=== PATIENT | female | born 1995 | race Caucasian/White ===

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

== ENCOUNTER 2017-02-27 05:57 | Emergency (ER) | payer OTHER ==
[2017-02-27] MEDS ORDERED: ONDANSETRON 4 MG/2 ML VIAL ONE (06:20)
--- NOTE | 2017-02-27 06:41 | PDOC ---
History of Present Illness - General Stated Complaint: ABD PAIN Time Seen by Provider: 02/27/17 06:04 - History of Present Illness Initial Comments: 02/27/17 06:34 21 yo with h/o appendectomy who presents with abdominal pain. She reports increasing, sharp , RLQ, abdominal pain of 21 hrs duration. Pain aggravated with standing, and pressure. Not alleviated with OTC Zantac. Also complains of nausea. Denies SOB, epigastric pain, reflux, diarrhea, constipation, blood in stool, vomiting, fevers/chills, dysuria, urinary complaints, vaginal discharge, dyspareurnia flank pain, lightheadedness. LMP ( 02/06). Denies menstrual irregularities. Past History - Past Medical History Allergies/Adverse Reactions: Allergies Allergy/AdvReac Type Severity Reaction Status Date / Time No Known Allergies Allergy Verified 02/27/17 08:44 Home Medications: Ambulatory Orders NK [No Known Home Medication] 02/27/17 Asthma: Yes - Surgical History Appendectomy: Yes - Immunization History Immunization Up to Date: Yes - Psycho/Social/Smoking Cessation Hx Anxiety: No Suicidal Ideation: No Smoking Status: No Smoking History: Never smoked Number of Cigarettes Smoked Daily: 0 Hx Alcohol Use: No Drug/Substance Use Hx: No Review of Systems - Review of Systems Comments:: 02/27/17 07:01 GENERAL/CONSTITUTIONAL: No fever or chills. No weakness. HEAD, EYES, EARS, NOSE AND THROAT: No change in vision. No ear pain or discharge. No sore throat. CARDIOVASCULAR: No chest pain or shortness of breath RESPIRATORY: No cough, wheezing, or hemoptysis. GASTROINTESTINAL:+ Abdominal pain and nausea. No vomiting, diarrhea or constipation. GENITOURINARY: No dysuria, frequency, or change in urination. MUSCULOSKELETAL: No joint or muscle swelling or pain. No neck or back pain. SKIN: No rash NEUROLOGIC: No headache, vertigo, loss of consciousness, or change in strength/ sensation. ENDOCRINE: No increased thirst. No abnormal weight change HEMATOLOGIC/LYMPHATIC: No anemia, easy bleeding, or history of blood clots. ALLERGIC/IMMUNOLOGIC: No hives or skin allergy. *Physical Exam - Physical Exam Comments: 02/27/17 07:04 GENERAL: Awake, alert, and fully oriented, in no acute distress HEAD: No signs of trauma, normocephalic, atraumatic EYES: PERRLA, EOMI, sclera anicteric, conjunctiva clear ENT: Auricles normal inspection, hearing grossly normal, nares patent, oropharynx clear without exudates. Moist mucosa NECK: Normal ROM, supple, no lymphadenopathy, JVD, or masses LUNGS: No distress, speaks full sentences, clear to auscultation bilaterally HEART: Regular rate and rhythm, normal S1 and S2, no murmurs, rubs or gallops, peripheral pulses normal and equal bilaterally. ABDOMEN: + RLQ TTP. Soft, nontender, normoactive bowel sounds. No guarding, no rebound. No masses. Absent flank pain and suprapubic pain. EXTREMITIES: Normal inspection, Normal range of motion, no edema. No clubbing or cyanosis. NEUROLOGICAL: Cranial nerves II through XII grossly intact. Normal speech, normal gait, no focal sensorimotor deficits SKIN: Warm, Dry, normal turgor, no rashes or lesions noted. ED Treatment Course - LABORATORY CBC & Chemistry Diagram: 02/27/17 06:32 02/27/17 06:32 Medical Decision Making - Medical Decision Making 02/27/17 07:06 21 yo F with h/o appendectomy who presents with RLQ abdominal pain. Pt. reports nausea and abdominal pain. Denies asx. symptoms. Physical exam reveal RLQ TTP. ED Course: CBC, CMP, UA, BHCG Transvaginal U/S Morphine 2 mg Ondansetron NS 1L *DC/Admit/Observation/Transfer Diagnosis at time of Disposition: Ovarian cyst Abdominal pain Qualifiers: Abdominal location: right lower quadrant Qualified Code(s): R10.31 - Right lower quadrant pain - Discharge Dispostion Disposition: HOME Condition at time of disposition: Stable - Patient Instructions Printed Discharge Instructions: DI for Ovarian Cyst Additional Instructions: You were seen today in the ER for right lower abdominal pain. We did blood work which showed a slightly elevated white blood cell count, so we did an ultrasound and a CT scan of the abdomen and pelvis. These studies showed some fluid in the right pelvis which is probably due to a ruptured ovarian cyst on that side. You have an incidentally found kidney stone within the left kidney which probably has nothing to do with the pain you are feeling today. Please take Aleve every 12 hours as needed for pain (you can take 2 pills for the first dose, but after that take only one pill every 12 hours). You can use a hot pack too. Follow up with a hand bobbin cleaner or your regular doctor, or return to the ER for any further emergency concerns. - Post Discharge Activity Work/School Note: Back to Work - Attestations Physician Attestion: 02/28/17 01:14 I, Dr. Jose Guadalupe Ferrell, attest that this document has been prepared under my direction and personally reviewed by me in its entirety. I further attest, that it accurately reflects all work, treatment, procedures and medical decision -making performed by me.
[2017-02-27] MEDS ORDERED: SODIUM CHLORIDE 1,000 ML IV STA (06:59)
[2017-02-27] MEDS ORDERED: morphine CARPU-JECT 2 MG/1 ML DISP.SYRIN IVPUSH ONE (06:59)
[2017-02-27 07:02] LABS: URINE APPEARANCE CLEAR; URINE BILIRUBIN NEGATIVE (NEGATIVE); URINE BLOOD NEGATIVE (NEGATIVE); URINE COLOR YELLOW; URINE GLUCOSE (UA) NEGATIVE (NEGATIVE); URINE KETONE NEGATIVE (NEGATIVE); URINE LEUK ESTERASE NEGATIVE (NEGATIVE); URINE NITRITE NEGATIVE (NEGATIVE); URINE PROTEIN NEGATIVE (NEGATIVE); URINE UROBILINOGEN NEGATIVE mg/dL (0.2-1.0)
--- NOTE | 2017-02-27 07:02 | PDOC ---
Attending Attestation - Resident Resident Name: Jose Guadalupe Ferrell - ED Attending Attestation I have performed the following: I have examined & evaluated the patient, The case was reviewed & discussed with the resident, I agree w/resident's findings & plan, Exceptions are as noted - HPI HPI: 02/27/17 07:01 RLQ pian since 9pm last night. + nausea, vomiting, Denies FUD, - Physicial Exam PE: 02/27/17 07:00 *Physical Exam General Appearance: Yes: Appropriately Dressed. mild distress, No, Intoxicated HEENT: positive: EOMI, SANDEEP, Normal ENT Inspection, Normal Voice, TMs Normal, Pharynx Normal. negative: Pale Conjunctivae, Photophobia, Scleral Icterus (R), Scleral Icterus (L) Neck: positive: Trachea midline, Normal Thyroid, Supple. negative: Tender, Rigid, Carotid bruit, Stridor, Lymphadenopathy (R), Lymphadenopathy (L), Thyromegaly Respiratory/Chest: positive: Lungs Clear, Normal Breath Sounds. negative: Chest Tender, Respiratory Distress, Accessory Muscle Use, Labored Respiration, RES, Crackles, Rales, Rhonchi, Stridor, Wheezing, Dullness Cardiovascular: positive: Regular Rhythm, Regular Rate, S1, S2. negative: Edema , JVD, Murmur, Bradycardia, Tachycardia Vascular Pulses: Dorsalis-Pedis (R): 2+, Doralis-Pedis (L): 2+ Gastrointestinal/Abdominal: positive: Normal Bowel Sounds, Flat, Soft. RLQ tenderness, + guarding. negative: , Organomegaly, Pulsatile Mass, Increased Bowel Sounds, Decreased BS, Distended, Guarding, Rebound, Hernia, Hepatomegaly, Spleenomegaly Lymphatic: negative: Adenopathy, Tenderness Musculoskeletal: positive: Normal Inspection. negative: CVA Tenderness, Decreased Range of Motion Extremity: positive: Normal Capillary Refill, Normal Inspection, Normal Range of Motion, Pelvis Stable. negative: Tender, Pedal Edema, Swelling, Erythema Integumentary: positive: Normal Color, Dry, Warm. negative: Cyanotic, Erythema , Jaundice, Rash Neurologic: positive: mechanical adjuster II-XII NML intact, Fully Oriented, Alert, Normal Mood/ Affect, Motor Strength 5/5. negative: EOM Palsy, Facial Droop, Sensory Deficit
[2017-02-27 07:04] VITALS: TEMP 98; BMI 22.3
[2017-02-27] MEDS ORDERED: morphine CARPU-JECT 4 MG/1 ML DISP.SYRIN ONE ×2 (07:10→08:38)
[2017-02-27 07:37] LABS: BASOPHIL 0.5 % (0-2.0); MCH 31.2 pg (25.7-33.7); MCHC 33.5 g/dl (32.0-36.0); MEAN PLT VOLUME 9.1 fl (7.5-11.1); NEUTROPHILS 76.5 % (42.8-82.8); PLATELET COUNT 250 K/MM3 (134-434); RDW 13.3 % (11.6-15.6); WHITE BLOOD COUNT 13.4 K/mm3 (4.0-10.0)
[2017-02-27 08:11] LABS: ALBUMIN 4.1 g/dl (3.4-5.0); ALK PHOS 68 U/L (45-117); ANION GAP 8 (8-16); BILIRUBIN,TOTAL 0.2 mg/dL (0.2-1.0); CALCIUM 9.1 mg/dL (8.5-10.1); CO2 26 mmol/L (21-32); CREATININE 0.7 mg/dL (0.55-1.02); GLUCOSE,RANDOM 104 mg/dL (74-106); SGOT/AST 15 U/L (15-37); SGPT/ALT 17 U/L (12-78); TOT PROT 7.3 g/dl (6.4-8.2)
[2017-02-27] MEDS ORDERED: morphine CARPU-JECT 4 MG/1 ML DISP.SYRIN IVPUSH ONE (08:35)
--- NOTE | 2017-02-27 08:59 | PDOC ---
*Physical Exam - Vital Signs Last Vital Signs Temp Pulse Resp BP Pulse Ox 98 F 89 15 125/67 100 02/27/17 07:01 02/27/17 07:01 02/27/17 07:01 02/27/17 07:01 02/27/17 07:01 - Physical Exam General Appearance: Yes: Nourished, Mild Distress, Other (pleasant younger female who provides helpful medical history and is answering appropriately but appears uncomfortable, family at bedside) HEENT: positive: EOMI, Normal Voice, Hearing Grossly Normal. negative: Scleral Icterus (R), Scleral Icterus (L), Nasal Congestion Neck: positive: Trachea midline, Supple. negative: Tender, Rigid Respiratory/Chest: positive: Lungs Clear, Normal Breath Sounds. negative: Respiratory Distress, Crackles, Rhonchi, Stridor, Wheezing Cardiovascular: positive: Regular Rhythm, Regular Rate. negative: Murmur Gastrointestinal/Abdominal: positive: Normal Bowel Sounds, Tender (moderate RLQ tenderness to palpation), Soft. negative: Organomegaly, Pulsatile Mass Musculoskeletal: positive: Normal Inspection. negative: Decreased Range of Motion, Vertebral Tenderness Extremity: positive: Normal Capillary Refill, Normal Inspection, Normal Range of Motion. negative: Tender, Cyanosis Integumentary: positive: Normal Color, Dry, Warm. negative: Erythema, Rash, Bruising Neurologic: positive: elementary assistant principal II-XII NML intact, Fully Oriented, Alert, Normal Mood/ Affect, Normal Response, Motor Strength 5/5 ED Treatment Course - LABORATORY CBC & Chemistry Diagram: 02/27/17 06:32 02/27/17 06:32 - ADDITIONAL ORDERS Additional order review: Laboratory Results 02/27/17 02/27/17 02/27/17 06:32 06:32 06:32 Sodium 141 Potassium 4.2 D Chloride 107 Carbon Dioxide 26 Anion Gap 8 BUN 17 D Creatinine 0.7 Creat Clearance w eGFR > 60 Random Glucose 104 D Calcium 9.1 Total Bilirubin 0.2 D AST 15 ALT 17 Alkaline Phosphatase 68 Total Protein 7.3 Albumin 4.1 D Lipase 159 Urine Color Yellow Urine Appearance Clear Urine pH 5.0 Urine Protein Negative Urine Glucose (UA) Negative Urine Ketones Negative Urine Blood Negative Urine Nitrite Negative Urine Bilirubin Negative Urine Urobilinogen Negative Ur Leukocyte Esterase Negative Urine HCG, Qual Negative 02/27/17 06:32 RBC 4.00 MCV 93.0 MCHC 33.5 RDW 13.3 MPV 9.1 Neutrophils % 76.5 Lymphocytes % 14.9 D Monocytes % 6.1 Eosinophils % 2.0 D Basophils % 0.5 - RADIOLOGY Radiology Studies Ordered: CT abdomen without contrast suggests small amount of free fluid in the pelvis consistent with ruptured ovarian cyst, and one intrarenal calculus on the left without e/o obstruction, no appendix visualized. - Medications Given in the ED: ED Medications Discontinued Medications Generic Name Dose Route Start Last Admin Trade Name [place] PRN Reason Stop Dose Admin Sodium Chloride 1,000 mls @ 1,000 mls/hr 02/27/17 06:59 02/27/17 07:08 Normal Saline - IV 02/27/17 07:58 1,000 mls/hr ASDIR STA Administration Morphine Sulfate 2 mg 02/27/17 06:59 02/27/17 07:08 Morphine Injection - IVPUSH 02/27/17 07:00 2 mg ONCE ONE Administration Medical Decision Making - Medical Decision Making Assumed care from excellent Dr. Jose Guadalupe Ferrell at 0700. 21 yo female with h/o appendectomy 3 years ago who p/w RLQ pain. 02/27/17 08:37 Pt has WBC 13.7 noted on CBC result. Examined and found with continued moderate RLQ ttp despite recent morphine. 02/27/17 10:[address] renal stone protocol ordered. Pt's pain is well controlled with the Toradol. Abdominal CT suggestive of ruptured ovarian cyst, no intraabdominal e/o infection or ureteral stone. The patient is comfortable with DC home and plan to take OTC NSAIDs and f/u with PCP. *DC/Admit/Observation/Transfer Diagnosis at time of Disposition: Ovarian cyst Abdominal pain Qualifiers: Abdominal location: right lower quadrant Qualified Code(s): R10.31 - Right lower quadrant pain - Discharge Dispostion Disposition: HOME Condition at time of disposition: Stable Admit: No - Patient Instructions Printed Discharge Instructions: DI for Ovarian Cyst Additional Instructions: You were seen today in the ER for right lower abdominal pain. We did blood work which showed a slightly elevated white blood cell count, so we did an ultrasound and a CT scan of the abdomen and pelvis. These studies showed some fluid in the right pelvis which is probably due to a ruptured ovarian cyst on that side. You have an incidentally found kidney stone within the left kidney which probably has nothing to do with the pain you are feeling today. Please take Aleve every 12 hours as needed for pain (you can take 2 pills for the first dose, but after that take only one pill every 12 hours). You can use a hot pack too. Follow up with a fiscal assistant or your regular doctor, or return to the ER for any further emergency concerns. - Post Discharge Activity Work/School Note: Back to Work - Attestations Physician Attestion: 02/27/17 12:54 I, Dr. Jazmin Guerrero, attest that this document has been prepared under my direction and personally reviewed by me in its entirety. I further attest, that it accurately reflects all work, treatment, procedures and medical decision -making performed by me.
[2017-02-27] MEDS ORDERED: ACETAMINOPHEN 325 MG TABLET (FP) ONE (09:30)
[2017-02-27] MEDS ORDERED: KETOROLAC TROMETHAMINE 30 MG/1 ML VIAL IVPUSH ONE (10:01)
[2017-02-27] MEDS ORDERED: KETOROLAC TROMETHAMINE 30 MG/1 ML VIAL ONE (10:09)
--- NOTE | 2017-02-27 10:11 | PDOC ---
*Physical Exam - Vital Signs Last Vital Signs Temp Pulse Resp BP Pulse Ox 98 F 89 15 125/67 100 02/27/17 07:01 02/27/17 07:01 02/27/17 07:01 02/27/17 07:01 02/27/17 07:01 - Physical Exam General Appearance: Yes: Nourished Neck: positive: Trachea midline Respiratory/Chest: positive: Chest Tender, Lungs Clear, Normal Breath Sounds Cardiovascular: positive: Regular Rhythm, Regular Rate Gastrointestinal/Abdominal: positive: Tender. negative: Flat, Soft ED Treatment Course - LABORATORY CBC & Chemistry Diagram: 02/27/17 06:32 02/27/17 06:32 - ADDITIONAL ORDERS Additional order review: Laboratory Results 02/27/17 02/27/17 02/27/17 06:32 06:32 06:32 Sodium 141 Potassium 4.2 D Chloride 107 Carbon Dioxide 26 Anion Gap 8 BUN 17 D Creatinine 0.7 Creat Clearance w eGFR > 60 Random Glucose 104 D Calcium 9.1 Total Bilirubin 0.2 D AST 15 ALT 17 Alkaline Phosphatase 68 Total Protein 7.3 Albumin 4.1 D Lipase 159 Urine Color Yellow Urine Appearance Clear Urine pH 5.0 Urine Protein Negative Urine Glucose (UA) Negative Urine Ketones Negative Urine Blood Negative Urine Nitrite Negative Urine Bilirubin Negative Urine Urobilinogen Negative Ur Leukocyte Esterase Negative Urine HCG, Qual Negative 02/27/17 06:32 RBC 4.00 MCV 93.0 MCHC 33.5 RDW 13.3 MPV 9.1 Neutrophils % 76.5 Lymphocytes % 14.9 D Monocytes % 6.1 Eosinophils % 2.0 D Basophils % 0.5 - Medications Given in the ED: ED Medications Discontinued Medications Generic Name Dose Route Start Last Admin Trade Name Owenq PRN Reason Stop Dose Admin Sodium Chloride 1,000 mls @ 1,000 mls/hr 02/27/17 06:59 02/27/17 07:08 Normal Saline - IV 02/27/17 07:58 1,000 mls/hr ASDIR STA Administration Morphine Sulfate 2 mg 02/27/17 06:59 02/27/17 07:08 Morphine Injection - IVPUSH 02/27/17 07:00 2 mg ONCE ONE Administration Morphine Sulfate 4 mg 02/27/17 08:35 02/27/17 08:42 Morphine Injection - IVPUSH 02/27/17 08:36 4 mg ONCE ONE Administration Medical Decision Making - Medical Decision Making 02/27/17 10:02 21 yo F with h/o appendectomy 3 yrs ago here with rlq pain, started yesterday no n/v pain worse with moving. and walking no urinary complaints, pain radiating to right flank. no n/v. assumed care of pt at [address] coelho , pt awaiting us rlq r/o ovarian cyst/ torsion. on exam pt rlq ttp, mild guarding. no rebound. no cva tenderness. awake alert plan ct if us nondiagnositc 02/27/17 10:11 us with trace free fluid, possible hemorraghic vs. ruptured. cyst. toradol for pain control ct renal stone eval possible stone. *DC/Admit/Observation/Transfer Diagnosis at time of Disposition: Ovarian cyst Abdominal pain Qualifiers: Abdominal location: right lower quadrant Qualified Code(s): R10.31 - Right lower quadrant pain - Discharge Dispostion Disposition: HOME Condition at time of disposition: Stable - Patient Instructions Printed Discharge Instructions: DI for Ovarian Cyst Additional Instructions: You were seen today in the ER for right lower abdominal pain. We did blood work which showed a slightly elevated white blood cell count, so we did an ultrasound and a CT scan of the abdomen and pelvis. These studies showed some fluid in the right pelvis which is probably due to a ruptured ovarian cyst on that side. You have an incidentally found kidney stone within the left kidney which probably has nothing to do with the pain you are feeling today. Please take Aleve every 12 hours as needed for pain (you can take 2 pills for the first dose, but after that take only one pill every 12 hours). You can use a hot pack too. Follow up with a quality control lead or your regular doctor, or return to the ER for any further emergency concerns. - Post Discharge Activity Work/School Note: Back to Work
[2017-02-27 13:01] VITALS: BP 116/68; PULSE 81
== END 2017-02-27 13:01 | disposition home or self-care (01) ==
LOC: JER 05:57
PROC: 3E033NZ Introduction of Analgesics, Hypnotics, Sedatives into Peripheral Vein, Percutaneous Approach (ICD-10-PCS; principal; 2017-02-27)
DX: N83.201 Unspecified ovarian cyst, right side (principal)
CPT/HCPCS: 36415; 74176; 76830-TC; 76856-TC; 80053; 81003; 83690; 84703; 85025; 87491; 87591; 99282-25

== ENCOUNTER 2018-01-21 18:24 | Emergency (ER) | payer OTHER ==
--- NOTE | 2018-01-21 18:33 | PDOC ---
Rapid Medical Evaluation Time Seen by Provider: 01/21/18 18:30 Medical Evaluation: Allergies Allergy/AdvReac Type Severity Reaction Status Date / Time No Known Allergies Allergy Verified 01/21/18 18:29 I have performed a brief in-person evaluation of this patient. The patient presents with a chief complaint of: mentrual cramps and dizziness today. 1 episode of vomiting Pertinent physical exam findings: none I have ordered the following: hcg, UA/culture The patient will proceed to the ED for further evaluation. Discharge Disposition - Diagnosis Menstrual cramps, Dizziness, Vomiting - Referrals - Patient Instructions - Post Discharge Activity
[2018-01-21 18:37] VITALS: BP 105/62; PULSE 67; TEMP 98.5; BMI 20.3
== END 2018-01-21 19:07 | disposition left against medical advice (07) ==
LOC: JER 18:24
DX: N94.6 Dysmenorrhea, unspecified (principal)
CPT/HCPCS: 99281-25

== ENCOUNTER 2019-03-02 10:36 | Emergency (ER) | payer OTHER ==
[2019-03-02 10:51] VITALS: BP 114/58; PULSE 89; TEMP 97.8; BMI 20.3
--- NOTE | 2019-03-02 11:56 | PDOC ---
History of Present Illness - General Chief Complaint: ,Possible Stated Complaint: PREG TEST Time Seen by Provider: 03/02/19 11:21 History Source: Patient Exam Limitations: No Limitations Past History - Past Medical History Allergies/Adverse Reactions: Allergies Allergy/AdvReac Type Severity Reaction Status Date / Time No Known Allergies Allergy Verified 01/21/18 18:29 Home Medications: Ambulatory Orders NK [No Known Home Medication] 02/27/17 Asthma: Yes COPD: No - Surgical History Appendectomy: Yes - Immunization History Immunization Up to Date: Yes - Suicide/Smoking/Psychosocial Hx Smoking Status: No Smoking History: Current every day smoker Have you smoked in the past 12 months: Yes Number of Cigarettes Smoked Daily: 10 Information on smoking cessation initiated: No Hx Alcohol Use: No Drug/Substance Use Hx: No *Physical Exam - Vital Signs Last Vital Signs Temp Pulse Resp BP Pulse Ox 97.8 F 89 18 114/58 L 100 03/02/19 10:48 03/02/19 10:48 03/02/19 10:48 03/02/19 10:48 03/02/19 10:48 - Physical Exam General Appearance: No: Apparent Distress Respiratory/Chest: positive: Lungs Clear, Normal Breath Sounds. negative: Respiratory Distress Cardiovascular: positive: Regular Rhythm, Regular Rate, S1, S2. negative: Murmur Gastrointestinal/Abdominal: positive: Normal Bowel Sounds, Soft. negative: Tender, Distended, Guarding, Rebound Neurologic: positive: Alert, Normal Mood/Affect ED Treatment Course - ADDITIONAL ORDERS Additional order review: Laboratory Results 03/02/19 11:15 Urine HCG, Qual Negative Medical Decision Making - Medical Decision Making 23 y/o F presents for test. States her LNMP was either January 13 or and she has regular menstrual cycles, but it has not yet come this month. Did a home test which was negative. Denies fever, sob, cp, abd pain, n/v, urinary complaints UCG negative 03/02/19 11:54 *DC/Admit/Observation/Transfer Diagnosis at time of Disposition: test negative - Discharge Dispostion Disposition: HOME Condition at time of disposition: Stable Decision to Admit order: No - Referrals - Patient Instructions Additional Instructions: Thank you for choosing . It was a pleasure taking care of you. Your test was negative here. Return to the Emergency Department for any other concerning symptoms. - Post Discharge Activity
== END 2019-03-02 11:55 | disposition home or self-care (01) ==
LOC: JERFT 10:36
DX: Z32.02 Encounter for pregnancy test, result negative (principal); F17.210 Nicotine dependence, cigarettes, uncomplicated; J45.909 Unspecified asthma, uncomplicated
CPT/HCPCS: 84703; 99281-25

== ENCOUNTER 2021-09-10 11:00 | Inpatient (IN) | payer OTHER ==
[2021-09-10] MEDS ORDERED: BISMUTH SUBSALICYLATE 524 MG/30 ML PO PRN (11:41)
[2021-09-10] MEDS ORDERED: MAGNESIUM HYDROX 2400MG/30ML ORAL SUSPENSION 30 ML CUP PO PRN (11:41)
[2021-09-10] MEDS ORDERED: ONDANSETRON *ODT* 4 MG TABLET SL PRN (11:41)
[2021-09-10] MEDS ORDERED: MAG HYDROX/AL HYDROX/SIMETH 30 ML UNIT-DOSE CUP PO PRN (11:41)
[2021-09-10] MEDS ORDERED: cloNIDine HCL 0.1 MG TABLET PO PRN (11:41)
[2021-09-10] MEDS ORDERED: ACETAMINOPHEN 325 MG TABLET (FP) PO PRN ×2 (11:41)
[2021-09-10] MEDS ORDERED: MAGNESIUM CITRATE 300 ML BOTTLE PO PRN (11:41)
[2021-09-10] MEDS ORDERED: IBUPROFEN 400 MG TABLET (FP) PO PRN (11:41)
[2021-09-10] MEDS ORDERED: NICOTINE 10 MG CARTRIDGE (INHALER) IH PRN (11:41)
[2021-09-10] MEDS ORDERED: MENTHOL/PHENOL 1 EACH UD MM PRN (11:41)
[2021-09-10 11:58] VITALS: BMI 18.9
[2021-09-10] MEDS ORDERED: methaDONE HCL 10 MG TABLET (FOR DETOX USE ONLY) PO ONE (13:30)
[2021-09-10] MEDS: METHOCARBAMOL 500 MG TABLET PO PRN (13:51)
[2021-09-10] MEDS: PRENATAL VITAMINS W/ FOLIC ACID TABLET (FP) PO SCH (13:51)
[2021-09-10] MEDS: hydrOXYzine PAMOATE 25 MG CAPSULE (FP) PO SCH ×3 (13:51→22:02)
[2021-09-10] MEDS: NICOTINE 14 MG/24 HOURS TOPICAL PATCH TD SCH (13:57)
[2021-09-10 15:15] LABS: HEMATOCRIT 31.6 % (32.4-45.2); HEMOGLOBIN 10.5 GM/dL (10.7-15.3); MCH 27.9 pg (25.7-33.7); MCHC 33.3 g/dl (32.0-36.0); MEAN CELL VOLUME 83.8 fl (80-96); MEAN PLT VOLUME 9.3 fl (7.5-11.1); PLATELET COUNT 258 10^3/uL (134-434); RBC 3.77 M/mm3 (3.60-5.2); RDW 16.6 % (11.6-15.6); WHITE BLOOD COUNT 6.1 K/mm3 (4.0-10.0)
[2021-09-10 15:28] LABS: ALBUMIN 3.6 g/dl (3.4-5.0); BLOOD UREA NITROGEN 15.4 mg/dL (7-18); CALCIUM 9.4 mg/dL (8.5-10.1)
[2021-09-10 15:34] LABS: BILIRUBIN,TOTAL 0.2 mg/dL (0.2-1); TOT PROT 7.4 g/dl (6.4-8.2)
[2021-09-10 15:36] LABS: CREATININE 0.9 mg/dL (0.55-1.3)
[2021-09-10] MEDS ORDERED: MELATONIN 5 MG TABLETS PO SCH (22:00)
[2021-09-10] MEDS ORDERED: THIAMINE HCL 100 MG TABLET (FP) PO SCH (22:00)
[2021-09-11] MEDS: hydrOXYzine PAMOATE 25 MG CAPSULE (FP) PO SCH ×2 (06:09→09:09)
[2021-09-11] MEDS ORDERED: methaDONE HCL 10 MG TABLET (FOR DETOX USE ONLY) ONE (09:05)
[2021-09-11] MEDS: METHOCARBAMOL 500 MG TABLET PO PRN (09:09)
[2021-09-11 09:11] VITALS: BP 119/73; PULSE 72; TEMP 97
[2021-09-11] MEDS: PRENATAL VITAMINS W/ FOLIC ACID TABLET (FP) PO SCH (09:11)
[2021-09-11] MEDS: NICOTINE 14 MG/24 HOURS TOPICAL PATCH TD SCH (09:12)
[2021-09-12] MEDS ORDERED: methaDONE HCL 10 MG TABLET (FOR DETOX USE ONLY) PO ONE ×2 (06:00→10:00)
[2021-09-14] MEDS ORDERED: methaDONE HCL 10 MG TABLET (FOR DETOX USE ONLY) PO ONE ×2 (06:00→10:00)
== END 2021-09-11 11:06 | disposition left against medical advice (07) | DRG 770 ==
LOC: YASAS 11:00 → Y6N 12:48
PROVIDERS: ADMIT Allergy & Immunology; ATTEND Allergy & Immunology
PROC: HZ2ZZZZ Detoxification Services for Substance Abuse Treatment (ICD-10-PCS; principal; 2021-09-10)
DX: F11.23 Opioid dependence with withdrawal (principal); F12.20 Cannabis dependence, uncomplicated; F17.210 Nicotine dependence, cigarettes, uncomplicated; F41.1 Generalized anxiety disorder; F32.A Depression, unspecified
CPT/HCPCS: 36415; 80053; 81025; 85027; 86780; C9803; J0735; U0003; U0005

== ENCOUNTER 2023-02-08 12:28 | Inpatient (IN) | payer OTHER ==
[2023-02-08 12:50] VITALS: BMI 20.5
[2023-02-08] MEDS ORDERED: POLYETHYLENE GLYCOL (HEALTHYLAX) 3350 17 GM PACKET PO PRN (13:26)
[2023-02-08] MEDS ORDERED: LOPERAMIDE HCL 2 MG CAPSULE PO PRN (13:26)
[2023-02-08] MEDS ORDERED: NALOXONE HCL (KLOXXADO) 8 MG SPRAY NS PRN (13:26)
[2023-02-08] MEDS ORDERED: MAG HYDROX/AL HYDROX/SIMETH 30 ML UNIT-DOSE CUP PO PRN (13:26)
[2023-02-08] MEDS ORDERED: guaiFENesin 600 MG TABLET.ER (FP) PO PRN (13:26)
[2023-02-08] MEDS ORDERED: DICYCLOMINE HCL 10 MG CAPSULE PO PRN (13:26)
[2023-02-08] MEDS ORDERED: BENZONATATE 200 MG CAPSULE PO PRN (13:26)
[2023-02-08] MEDS ORDERED: NALOXONE HCL 0.4 MG/ML VIAL IM PRN (13:26)
[2023-02-08] MEDS ORDERED: BISMUTH SUBSALICYLATE 524 MG/30 ML PO PRN (13:26)
[2023-02-08] MEDS ORDERED: NICOTINE 10 MG CARTRIDGE (INHALER) IH PRN (13:26)
[2023-02-08] MEDS ORDERED: IBUPROFEN 400 MG TABLET (FP) PO PRN (13:26)
[2023-02-08] MEDS ORDERED: BENZOCAINE/MENTHOL (CHLORASEPTIC ) LOZENGE MM PRN (13:26)
[2023-02-08] MEDS ORDERED: ACETAMINOPHEN 325 MG TABLET (FP) PO PRN (13:26)
[2023-02-08] MEDS ORDERED: MAGNESIUM HYDROX 2400MG/30ML ORAL SUSPENSION 30 ML CUP PO PRN (13:26)
[2023-02-08] MEDS ORDERED: methaDONE HCL 10 MG TABLET (FOR DETOX USE ONLY) PO ONE (13:32)
[2023-02-08] MEDS: IBUPROFEN 600 MG TABLET (FP) PO PRN (13:48)
[2023-02-08] MEDS ORDERED: methaDONE HCL 10 MG TABLET (FOR DETOX USE ONLY) ONE (13:53)
[2023-02-08] MEDS ORDERED: IBUPROFEN 600 MG TABLET (FP) PO ONE (13:54)
[2023-02-08] MEDS: NICOTINE POLACRILEX 2 MG GUM BUC PRN (13:58)
[2023-02-08] MEDS ORDERED: NICOTINE POLACRILEX 2 MG GUM ONE (14:00)
[2023-02-08] MEDS ORDERED: MELATONIN 5 MG TABLETS PO SCH (22:00)
[2023-02-08] MEDS: THIAMINE HCL 100 MG TABLET (FP) PO SCH (22:20)
[2023-02-08] MEDS: METHOCARBAMOL 500 MG TABLET PO PRN (22:20)
[2023-02-09] MEDS: cloNIDine HCL 0.1 MG TABLET PO PRN (05:27)
[2023-02-09] MEDS: NICOTINE POLACRILEX 2 MG GUM BUC PRN ×3 (07:15→22:29)
[2023-02-09] MEDS: PRENATAL VITAMINS W/ FOLIC ACID TABLET (FP) PO SCH (09:59)
[2023-02-09] MEDS: METHOCARBAMOL 500 MG TABLET PO PRN ×2 (09:59→22:15)
[2023-02-09] MEDS ORDERED: TRIMETHOBENZAMIDE HCL 200MG/2ML INJ IM PRN (10:43)
[2023-02-09 11:10] LABS: HEMATOCRIT 35.5 % (32.4-45.2); HEMOGLOBIN 11.3 GM/dL (10.7-15.3); MCHC 31.8 g/dl (32.0-36.0); MEAN CELL VOLUME 84.8 fl (80-96); MEAN PLT VOLUME 9.3 fl (7.5-11.1); PLATELET COUNT 308 10^3/uL (134-434); POTASSIUM 4.5 mmol/L (3.5-5.1); RBC 4.19 M/mm3 (3.60-5.2); RDW 15.8 % (11.6-15.6); WHITE BLOOD COUNT 6.1 K/mm3 (4.0-10.0)
[2023-02-09 11:12] LABS: ALBUMIN 3.9 g/dl (3.4-5.0); BLOOD UREA NITROGEN 15.6 mg/dL (7-18); CALCIUM 9.9 mg/dL (8.5-10.1)
[2023-02-09 11:15] LABS: CREATININE 0.7 mg/dL (0.55-1.3)
[2023-02-09 11:17] LABS: BILIRUBIN,TOTAL 0.7 mg/dL (0.2-1); TOT PROT 7.6 g/dl (6.4-8.2)
[2023-02-09] MEDS: diazePAM 5 MG TABLET PO PRN ×3 (12:31→22:16)
[2023-02-09] MEDS: GABAPENTIN 100 MG CAPSULE PO SCH (22:15)
[2023-02-09] MEDS: THIAMINE HCL 100 MG TABLET (FP) PO SCH (22:15)
[2023-02-09] MEDS: MELATONIN 5 MG TABLETS PO SCH (22:15)
[2023-02-09] MEDS: QUEtiapine FUMARATE 50 MG TABLET PO SCH (22:16)
[2023-02-10] MEDS ORDERED: methaDONE HCL 10 MG TABLET (FOR DETOX USE ONLY) PO ONE ×2 (05:00→10:00)
[2023-02-10] MEDS: GABAPENTIN 100 MG CAPSULE PO SCH ×3 (05:23→22:08)
[2023-02-10] MEDS: NICOTINE POLACRILEX 2 MG GUM BUC PRN ×4 (05:25→22:10)
[2023-02-10] MEDS: IBUPROFEN 600 MG TABLET (FP) PO PRN (06:10)
[2023-02-10] MEDS: PRENATAL VITAMINS W/ FOLIC ACID TABLET (FP) PO SCH (10:00)
[2023-02-10] MEDS: METHOCARBAMOL 500 MG TABLET PO PRN ×2 (10:00→22:08)
[2023-02-10] MEDS: cloNIDine HCL 0.1 MG TABLET PO PRN ×3 (10:00→22:08)
[2023-02-10] MEDS: QUEtiapine FUMARATE 50 MG TABLET PO SCH (22:08)
[2023-02-10] MEDS: THIAMINE HCL 100 MG TABLET (FP) PO SCH (22:08)
[2023-02-10] MEDS: MELATONIN 5 MG TABLETS PO SCH (22:08)
[2023-02-11] MEDS: GABAPENTIN 100 MG CAPSULE PO SCH (05:20)
[2023-02-11 05:38] VITALS: RESP 18; TEMP 96.9
[2023-02-11] MEDS: PRENATAL VITAMINS W/ FOLIC ACID TABLET (FP) PO SCH (09:15)
[2023-02-11 09:34] VITALS: BP 100/62; PULSE 87
== END 2023-02-11 09:52 | disposition home or self-care (01) | DRG 773 ==
LOC: YASAS 12:28 → Y6N 13:44
PROVIDERS: ADMIT Allergy & Immunology; ATTEND Surgery
PROC: HZ2ZZZZ Detoxification Services for Substance Abuse Treatment (ICD-10-PCS; principal; 2023-02-08)
DX: F11.23 Opioid dependence with withdrawal (principal); F14.10 Cocaine abuse, uncomplicated; F12.10 Cannabis abuse, uncomplicated; F17.210 Nicotine dependence, cigarettes, uncomplicated; F41.1 Generalized anxiety disorder; G47.00 Insomnia, unspecified; R63.4 Abnormal weight loss; Z68.20 Body mass index [BMI] 20.0-20.9, adult
CPT/HCPCS: 36415; 80053; 81025; 85027; 86780; 87635; 93005; 93010